=== PATIENT | female | born 1945 | race Caucasian/White ===

== ENCOUNTER 2021-04-07 20:09 | Inpatient (IN) ==
[2021-04-07] MEDS ORDERED: DILTIAZEM 50 MG/10 ML VIAL IV ONE (20:27)
[2021-04-07] MEDS ORDERED: DILTIAZEM 50 MG/10 ML VIAL IV STA (20:29)
[2021-04-07] MEDS ORDERED: DILTIAZEM INJ 100 MG in SODIUM CHLORIDE 0.9% 100 ML IV SCH (20:30)
[2021-04-07] MEDS ORDERED: DILTIAZEM 100 MG VIAL.ADD IV ONE (20:33)
[2021-04-07 21:06] LABS: Basophils # 0.1 10*3/uL (0.0-0.2); Basophils % 0.9 % (0.0-0.8); Eosinophils # 0.4 10*3/uL (0.0-0.87); Hematocrit 41.6 VOL% (35.7-47.0); Hemoglobin 14.5 GM/DL (12.0-16.0); Immature Granulocytes % 0.3 %; Immature Granulocytes Absolute 0.03 #; Lymphocytes % 33.2 % (21.3-54.2); Mean Corpuscular HGB Conc 34.9 GM/DL (32-36); Mean Platelet Volume 10.4 FL (9.6-12.0); Monocytes % 9.3 % (1.7-12.7); Neutrophils % 52.3 % (38.7-73.9); Platelet Count 320 T/CUMM (130-400); Red Blood Count 4.52 MC/CUMM (3.8-5.5); Red Cell Distribution Width 13.4 % (9.3-17.3); White Blood Count 9.1 T/CUMM (4-12)
[2021-04-07 21:40] LABS: Alanine Aminotransferase 24 U/L (13-56); Alkaline Phosphatase 126 U/L (45-117); Aspartate Amino Transferase 22 U/L (0-37); Bilirubin,Total < 0.39 MG/DL (0.20-1.00); Blood Urea Nitrogen 24 MG/DL (7-18); Calcium 8.6 MG/DL (8.5-10.1); Carbon Dioxide 24 MMOL/L (21-32); Estimated Glom Filtration Rate 71 ML/MIN; Glucose 142 MG/DL (74-106); Osmolality,Calculated 282.5 MOS/KG (273-304); Potassium 3.6 MMOL/L (3.5-5.1); Sodium 139 MMOL/L (136-145); Total Protein 7.7 G/DL (6.4-8.2)
[2021-04-07] MEDS ORDERED: DEXTROSE 50% 25 GM/50 ML VIAL IV PRN (22:42)
[2021-04-07] MEDS ORDERED: ACETAMINOPHEN 325 MG TABLET PO PRN (22:42)
[2021-04-07] MEDS ORDERED: ONDANSETRON 4 MG/2 ML VIAL IV PRN (22:42)
[2021-04-07] MEDS ORDERED: GLUCAGON 1 MG VIAL IM PRN (22:42)
[2021-04-07] MEDS ORDERED: ALPRAZolam 0.5 MG TABLET PO PRN (23:09)
[2021-04-07] MEDS ORDERED: ZALEPLON 5 MG CAPSULE PO PRN (23:11)
[2021-04-07] MEDS ORDERED: PRIMIDONE 50 MG TABLET PO SCH (23:30)
[2021-04-08] MEDS: ENOXAPARIN 100 MG/ML SYRINGE SUBCUT SCH ×2 (02:46→11:49)
[2021-04-08 03:03] LABS: Basophils # 0.1 10*3/uL (0.0-0.2); Basophils % 0.7 % (0.0-0.8); Eosinophils # 0.3 10*3/uL (0.0-0.87); Hematocrit 39.2 VOL% (35.7-47.0); Hemoglobin 13.7 GM/DL (12.0-16.0); Immature Granulocytes % 0.1 %; Immature Granulocytes Absolute 0.01 #; Lymphocytes # 2.6 10*3/uL (1.4-4.0); Lymphocytes % 34.8 % (21.3-54.2); Mean Corpuscular HGB Conc 34.9 GM/DL (32-36); Mean Corpuscular Volume 91.6 FL (87-102); Mean Platelet Volume 9.8 FL (9.6-12.0); Monocytes % 7.6 % (1.7-12.7); Neutrophils % 52.8 % (38.7-73.9); Platelet Count 293 T/CUMM (130-400); Red Blood Count 4.28 MC/CUMM (3.8-5.5); Red Cell Distribution Width 13.4 % (9.3-17.3); White Blood Count 7.5 T/CUMM (4-12)
[2021-04-08 03:17] LABS: Albumin 3.8 G/DL (3.4-5.0); Bilirubin,Total 0.4 MG/DL (0.20-1.00); Osmolality,Calculated 275.8 MOS/KG (273-304); Risk Ratio 4.24; Total Protein 7.4 G/DL (6.4-8.2); VLDL Cholesterol 27.4 MG/DL
[2021-04-08] MEDS ORDERED: buPROPion 100 MG TABLET PO SCH (09:00)
[2021-04-08] MEDS ORDERED: PANTOPRAZOLE 40 MG TABLET PO SCH (09:00)
[2021-04-08] MEDS: INSULIN REGULAR 100 UNIT/ML SUBCUT SCH ×2 (09:08→11:57)
[2021-04-08] MEDS ORDERED: KETOROLAC 30 MG/1 ML VIAL IV PRN (13:02)
[2021-04-08] MEDS ORDERED: METOPROLOL TARTRATE 25 MG TABLET PO SCH (15:00)
[2021-04-08 16:48] VITALS: BP 93/68
[2021-04-08] MEDS ORDERED: GABAPENTIN 300 MG CAPSULE PO SCH (19:00)
[2021-04-08] MEDS ORDERED: APIXABAN 5 MG TABLET PO SCH (21:00)
== END 2021-04-08 17:15 | disposition home or self-care (01) | DRG 309 ==
LOC: N.ED 20:09 → N.EDINP 22:42 → N.TELES 04-08 02:29
PROVIDERS: ADMIT Hospitalist; ATTEND Hospitalist